=== PATIENT | male | born 1980 | race Caucasian/White ===

== ENCOUNTER 2016-05-07 09:09 | Emergency (ER) | payer BC ==
[~2016-05-07] VITALS: Ht 180.3 cm; Wt 85.9 kg
[2016-05-07 09:11] VITALS: BP 131/76; TEMP 97.8
[2016-05-07] MEDS ORDERED: VALIUM 5MG T5 MG/TAB PO (09:32)
[2016-05-07 11:02] VITALS: PULSE 70
== END 2016-05-07 10:56 | disposition home or self-care (01) ==
LOC: COL.ER 09:09
DX: M62.830 Muscle spasm of back (principal); M54.2 Cervicalgia
CPT/HCPCS: J1885; J3360